=== PATIENT | female | born 1955 | race Caucasian/White ===

== ENCOUNTER 2020-10-31 05:45 | Inpatient (IN) | payer MEDICARE, OTHER ==
[~2020-10-31] VITALS: Ht 154.9 cm; Wt 144.7 kg
[2020-10-31] VITALS (12 sets, daily range): BP systolic 145–197; BP diastolic 67–99
[~2020-10-31 05:45] MED LIST: AMLODIPINE BESY10 MG PO; COZAAR 50 MG TA50 M1 PO; CYMBALTA60 MG PO; ESTRADIOL 1 MG T1 M1 PO; FISH OIL 1,001000 M2 PO; FOLIC ACID1 MG PO; HYDROCHLOROTHIA25 M1 PO; IBUPROFEN 600600 M1 PO; KEFLEX500 M1 PO; NEURONTIN 300M300 M2 PO; NEXIUM40 MG PO; NORCO 5-325 TA1 EACH PO; PREDNISONE 20 M20 M1 PO; PRENATAL PO; PROAIR HFA8.5 GM INH; SYNTHROID25 MC1 PO; TESSALON PERLE100 MG PO; XANAX1 MG PO
[2020-10-31 06:51] LABS: ABSOLUTE BASOPHILS 0.1 thou/uL (0.0-0.2); ABSOLUTE EOSINOPHILS 0.1 thou/uL (0.0-0.7); ABSOLUTE LYMPHOCYTES 1.3 thou/uL (0.8-5.3); ABSOLUTE MONOCYTES 0.7 thou/uL (0.0-1.2); ABSOLUTE NEUTROPHILS 8.4 thou/uL (1.6-8.1); BASOPHILS 0.5 %; EOSINOPHILS 0.7 %; HEMATOCRIT 35.9 % (37.0-47.0); LYMPHOCYTES 12.2 %; MCH 32.7 pg (26.0-34.0); MCHC 33.5 g/dL (28.0-37.0); MCV 97.5 fL (80.0-100.0); MPV 7.3 fl. (7.2-11.1); NUCLEATED RBCS 0 /100WBC; PLATELET COUNT* 261 thou/uL (150-400); POLYS 79.6 %; RBC 3.68 mil/uL (4.20-5.00); RDW-CV 15.4 % (10.5-14.5); WBC 10.5 thou/uL (4.0-11.0)
[2020-10-31 06:57] LABS: CALCIUM 8.4 mg/dL (8.5-10.1); CREATININE 1.1 mg/dL (0.6-1.3); POTASSIUM 3.7 mmol/L (3.5-5.1)
[2020-10-31 07:01] LABS: ALBUMIN 3.5 g/dL (3.4-5.0); TOTAL BILIRUBIN 0.5 mg/dL (<0.1-1.0)
[2020-10-31 07:02] LABS: INR 0.9; PROTIME 9.8 Seconds (9.20-11.50)
[2020-10-31 07:20] LABS: URINE BILIRUBIN NEGATIVE (Negative); URINE BLOOD 1+ (Negative); URINE CLARITY CLEAR; URINE COLOR YELLOW; URINE GLUCOSE-RANDOM NEGATIVE (Negative); URINE KETONES NEGATIVE (Negative); URINE LEUKOCYTES-REFLEX NEGATIVE (Negative); URINE NITRITE-REFLEX NEGATIVE (Negative); URINE PROTEIN 2+ (Negative); URINE UROBILINOGEN 0.2 E.U./dl (0.2-1.0)
[2020-10-31 07:47] LABS: BACTERIA-REFLEX None Seen /HPF (None Seen); CASTS None Seen /LPF (None Seen); CRYSTALS None Seen /LPF (None Seen); SQUAMOUS 0-3 Few /LPF (0-3); URINE RBC 0-2 Rare /HPF (0-2); URINE WBC-REFLEX None Seen /HPF (0-5)
[2020-10-31 10:29] LABS: BE -2.5 mmol/L (-2 to +3)
[2020-10-31 10:32] LABS: PCO2 59.9 mmHg (35.0-45.0)
--- NOTE | 2020-10-31 10:32 | EKG ---
[place] [address] ELECTROCARDIOGRAM REPORT Name: SHELLY GONSALEZ Room: [place] [address] ADM IN .R.#: [id number] Admission: 10/31/20 Attend Phys: Endy Cox Discharge: Date of : 57 Date of Service: 10/31/20 0617 Report #: [id number] THIS REPORT FOR: //name// [facility] ED Test Date: 2020-10-31 Test Time: 06:17:21 Pat Name: SHELLY GONSALEZ Department: Room: [facility] Gender: F Client Care Coordinator: [facility] : 1955 Requested By: Rosalba Funes Order Number: [id number] MD: Ludin Bucio Measurements Intervals [place] Rate: 111 P: 79 [place]: 163 QRS: 70 QRSD: 103 T: 23 QT: 352 QTc: 479 Interpretive Statements Sinus tachycardia poor r wave progression Borderline prolonged QT interval Baseline wander in lead(s) V6 Compared to ECG 07/07/2017 12:45:24 Sinus rhythm no longer present Electronically Signed On 10-31-2020 10:32:40 CDT by Ludin Bucio [email or web address] <ELECTRONICALLY SIGNED> By: Ludin Bucio MD, FACC 10/31/20 1032 6 6 Ludin Bucio MD, [facility] /EPI
[2020-10-31 10:33] LABS: PO2 59.2 mmHg (75.0-100.0)
[2020-10-31 15:43] LABS: BE 0.1 mmol/L (-2 to +3); PCO2 41.2 mmHg (35.0-45.0)
[2020-10-31 15:45] LABS: PO2 55.9 mmHg (75.0-100.0)
[2020-10-31 22:09] LABS: INFLUENZA A ANTIGEN Negative (Negative); INFLUENZA B ANTIGEN Negative (Negative)
[2020-11-01] VITALS (18 sets, daily range): BP systolic 120–176; BP diastolic 52–79
[2020-11-01 03:48] LABS: HEMATOCRIT 30.1 % (37.0-47.0); HEMOGLOBIN 10.1 gm/dL (12.0-15.0); MCH 32.9 pg (26.0-34.0); MCHC 33.6 g/dL (28.0-37.0); MCV 97.9 fL (80.0-100.0); MPV 7.6 fl. (7.2-11.1); NUCLEATED RBCS 0 /100WBC; PLATELET COUNT* 205 thou/uL (150-400); RBC 3.08 mil/uL (4.20-5.00); RDW-CV 15.2 % (10.5-14.5); WBC 10.5 thou/uL (4.0-11.0)
[2020-11-01 03:59] LABS: CALCIUM 8.8 mg/dL (8.5-10.1); CREATININE 1.4 mg/dL (0.6-1.3); POTASSIUM 3.7 mmol/L (3.5-5.1)
[2020-11-01 06:50] LABS: ABSOLUTE LYMPHOCYTES 0.3 thou/uL (0.8-5.3); ABSOLUTE MONOCYTES 0.1 thou/uL (0.0-1.2); ABSOLUTE NEUTROPHILS 10.1 thou/uL (1.6-8.1); PLATELET ESTIMATE ADEQUATE
[2020-11-01 06:51] LABS: ANISOCYTOSIS 1+; POIKILOCYTOSIS 1+
--- NOTE | 2020-11-01 11:18 | CON ---
[address] [address] CONSULTATION Name: SHELYL GONSALEZ Room: [address] IN .R.#: [id number] Admission: 10/31/20 Attend Phys: Endy Novak, Discharge: Date of : 57 Report #: [id number] THIS REPORT FOR: cc: Salty Lockwood MD, Bruce D. MD ~ Ludin Bucio MD [facility] DATE OF SERVICE: 11/01/2020 CARDIOLOGY CONSULTATION HISTORY OF PRESENT ILLNESS: The patient is a 64-year-old single white female, who I was asked to see in the hospital today because of high blood pressure. The patient states she has been told that she has had a heart murmur in the past. Apparently, she had a stress test years ago. She has a history of COPD and does use inhalers. She is not very active at this time. Recently, she has had increasing shortness of breath, cough and some swelling of her feet. She notes occasional episodes when her heart rate will increase, but she has had no syncope. She denied any fever or bleeding. She finally came to the Emergency Room yesterday and was admitted to a monitored bed. However, shortness of breath worsened and she was transferred to the ICU and put on BiPAP. Her blood pressure was noted to be elevated and I was asked to see her for further evaluation and treatment. PAST MEDICAL HISTORY: She has had tonsillectomy, appendectomy, hysterectomy, knee surgery, cataract extraction, hypertension, and history of depression. CURRENT MEDICATIONS: Consists of the following list: She is on an inhaler, Xanax for anxiety, amlodipine, Cymbalta for depression, Nexium, estradiol, hydrochlorothiazide, hydrocodone for chronic pain, Synthroid, losartan, prednisone. ALLERGIES: SHE HAD PREVIOUS INTOLERANCE TO HIGH BLOOD PRESSURE MEDICATIONS. FAMILY HISTORY: Her father had heart disease. SOCIAL HISTORY: She is , lives by herself in [place]. She is on disability. 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 Smokes a pack of cigarettes a day. She drinks a 12-pack of beer a day. No illicit drug use. REVIEW OF SYSTEMS: No history of stroke. She has COPD. No history of liver disease, kidney disease, or cancer. She has a history of depression, saw a psychiatrist in the past. She denies a history of seizure, withdrawal symptoms, passing out from drinking. She has [place] [address] CONSULTATION Name: SHELLY GONSALEZ Room: [address]#: [id number] Admission: 10/31/20 Attend Phys: Endy Novak, Discharge: Date of : 57 Report #: [id number] PHYSICAL EXAMINATION: VITAL SIGNS: Currently, blood pressure is 140/60, pulse 70. She is afebrile. HEENT: She was anicteric. Conjunctivae pink. Mucous membranes moist. NECK: Veins nondistended. No carotid bruits. CHEST: Revealed distant breath sounds. HEART: Regular rate and rhythm, grade 2 systolic ejection murmur. ABDOMEN: Soft. EXTREMITIES: Had no edema. Dorsalis pedis pulse 3+ bilaterally. SKIN: Cool and dry. NEUROLOGIC: Nonfocal. PSYCHIATRIC: Mood is appropriate. SKIN: Warm and dry. ECG on admission showed a sinus rhythm. No significant ST or T-wave change. Her workup: She had a portable chest x-ray on admission yesterday that showed cardiomegaly, an infiltrate, small effusion. She had lab work that included sodium 130, creatinine 1.4. Her liver function studies were normal. Troponin was borderline elevated at 0.17. BNP 11,595. TSH 1.9. White blood cell count 3.0, hemoglobin was 10.1. Her COVID antigen stat test was negative. Urinalysis: Plus protein, plus blood, negative leukocytes. IMPRESSION AND RECOMMENDATIONS: 1. Chronic obstructive pulmonary disease. 2. High blood pressure. The patient has been on ARB, calcium-janeen, diuretic. 3. Borderline troponin. No evidence of acute myocardial infarction. Recommend echocardiogram. 4. Tobacco abuse. 5. Alcohol abuse. I would be concerned about withdrawal symptoms. 6. History of depression. 7. Elevated blood glucose. I would rule out diabetes. 8. Anemia. No history of bleeding. <ELECTRONICALLY SIGNED> By: Ludin Bucio MD, [facility] 11/01/20 1118 0800 [id number] Bucio MD, FAC /nt
[2020-11-01 13:12] LABS: HEMATOCRIT 29.4 % (37.0-47.0); HEMOGLOBIN 9.7 gm/dL (12.0-15.0); MCH 32.4 pg (26.0-34.0); MPV 7.8 fl. (7.2-11.1); NUCLEATED RBCS 0 /100WBC; PLATELET COUNT* 209 thou/uL (150-400); RDW-CV 15.4 % (10.5-14.5); WBC 14.8 thou/uL (4.0-11.0)
[2020-11-01 13:16] LABS: INR 0.9; PROTIME 9.6 Seconds (9.20-11.50)
[2020-11-01 14:29] LABS: ABSOLUTE LYMPHOCYTES 0.6 thou/uL (0.8-5.3); ABSOLUTE MONOCYTES 0.3 thou/uL (0.0-1.2); ABSOLUTE NEUTROPHILS 13.9 thou/uL (1.6-8.1)
[2020-11-01 14:30] LABS: ANISOCYTOSIS 1+; PLATELET ESTIMATE ADEQUATE; POIKILOCYTOSIS 1+
[2020-11-01 18:17] LABS: AMP/METHAMP Negative (Negative); BARBITURATES Negative (Negative); BENZODIAZEPINES POSITIVE (Negative); COCAINE Negative (Negative); METHADONE Negative (Negative); OPIATES Negative (Negative); PCP Negative (Negative); THC Negative (Negative)
[2020-11-02] VITALS: BP 156/64
[2020-11-02 04:00] VITALS: BP 122/51
[2020-11-02 05:05] LABS: HEMATOCRIT 31.1 % (37.0-47.0); HEMOGLOBIN 10.2 gm/dL (12.0-15.0); MCH 32.4 pg (26.0-34.0); MCHC 32.9 g/dL (28.0-37.0); MCV 98.5 fL (80.0-100.0); RBC 3.15 mil/uL (4.20-5.00); RDW-CV 15.6 % (10.5-14.5); WBC 12.1 thou/uL (4.0-11.0)
[2020-11-02 05:26] LABS: ANION GAP 11 mmol/L (7-16); BUN 36 mg/dL (7-18); CHLORIDE 98 mmol/L (98-107); CHOLESTEROL 195 mg/dL (<200); CO2 26 mmol/L (21-32); GLUCOSE 143 mg/dL (70-99); HDL CHOLESTEROL 124 mg/dL (>40); LDL CHOLESTEROL 61 mg/dL (<100); MAGNESIUM 2.5 mg/dL (1.8-2.4); POTASSIUM 3.7 mmol/L (3.5-5.1); SODIUM 135 mmol/L (136-145); TC:HDL 1.6 Ratio (Not establshd); TRIGLYCERIDE 54 mg/dL (<150); VLDL 11 mg/dL (<40)
[2020-11-02 05:28] LABS: SERUM ASSESSMENT CLEAR
[2020-11-02 08:00] VITALS: BP 177/78
[2020-11-02 12:18] VITALS: BP 156/80
--- NOTE | 2020-11-02 14:04 | 2DMMODE ---
[place] [address] 2 D/M-MODE ECHOCARDIOGRAM Name: SHELLY GONSALEZ Room: [facility] ADM IN .R.#: [id number] Admission: 10/31/20 Attend Phys: Endy Cox Discharge: Date of : 57 Date of Service: 11/02/20 1403 Report #: [id number] THIS REPORT FOR: cc: Salty Lockwood MD, Bruce D. MD Holkins,Chuy Brady MD [facility] ~ APPROVED REPORT Study performed: 11/02/2020 11:39:56 EXAM: Comprehensive 2D, Doppler, and color-flow Echocardiogram Patient Location: In-Patient Room #: 227 Status: routine BSA: 1.62 HR: 85 bpm BP: 122/51 mmHg Rhythm: NSR Other Information Study Quality: Good Indications Dyspnea 2D Dimensions IVSd: 11.18 (7-11mm) LVOT Diam: 19.46 (18-24mm) LVDd: 47.74 mm PWd: 8.61 (7-11mm) Ascending Ao: 32.90 (22-36mm) LVDs: 29.89 (25-40mm) Aortic Root: 28.04 mm Volumes Left Atrial Volume (Systole) LA ESV Index: 47.70 mL/m2 Aortic Valve AoV Peak Gallo.: 2.45 m/s AO Peak Gr.: 24.02 mmHg LVOT Max P.01 mmHg AO Mean Gr.: 11.79 mmHg LVOT Mean P.76 mmHg LVOT Max V: 1.66 m/s AO V2 VTI: 43.92 cm LVOT Mean V: 0.98 m/s ROXI (VTI): 2.17 cm2 LVOT V1 VTI: 31.98 cm AI [place]: 6.09 m/s2 [place] [address] 2 D/M-MODE ECHOCARDIOGRAM Name: SHELLY GONSALEZ Room: [address] IN .R.#: [id number] Admission: 10/31/20 Attend Phys: Endy Cox Discharge: Date of : 57 Date of Service: 11/02/20 1403 Report #: [id number] AI PHT: 242.56 ms Mitral Valve E/A Ratio: 1.48 MV Decel. Time: 158.33 ms MV E Max Gallo.: 1.60 m/s MV PHT: 45.91 ms MVA (PHT): 4.79 cm2 TDI E/Lateral E': 17.78 E/Medial E': 20.00 Medial E' Gallo.: 0.08 m/s Lateral E' Gallo.: 0.09 m/s Pulmonary Valve PV Peak Gallo.: 1.09 m/s PV Peak Gr.: 4.76 mmHg Tricuspid Valve RAP Estimate: 5.00 mmHg TR Peak Gr.: 31.00 mmHg RVSP: 36.00 mmHg PA Pressure: 36.00 mmHg Left Ventricle The left ventricle is normal size. There is normal LV segmental wall motion. Borderline concentric left ventricular hypertrophy. Left ventricular systolic function is normal. The left ventricular ejection fraction is within the normal range. LVEF is 55%. Grade IV - fixed restrictive diastolic dysfunction. Right Ventricle The right ventricle is normal size. The right ventricular systolic function is normal. Atria Left atrium is moderately dilated. The right atrium size is normal. Aortic Valve Mild aortic valve sclerosis. Moderate aortic regurgitation. No hemodynamically significant valvular aortic stenosis. Mitral Valve The mitral valve is normal in structure. Moderate mitral regurgitation. No evidence of mitral valve stenosis[place] [address] 2 D/M-MODE ECHOCARDIOGRAM Name: SHELLY GONSALEZ Room: [address]#: [id number] Admission: 10/31/20 Attend Phys: Endy Cox Discharge: Date of : 57 Date of Service: 11/02/20 1403 Report #: [id number] The tricuspid valve is normal in structure. Mild tricuspid regurgitation. Mild pulmonary hypertension. Pulmonic Valve The pulmonary valve is normal in structure. There is no pulmonic valvular regurgitation. Great Vessels The aortic root is normal in size. IVC is normal in size and collapses >50% with inspiration. Pericardium There is no pericardial effusion. <Conclusion> The left ventricle is normal size. Borderline concentric left ventricular hypertrophy. Left ventricular systolic function is normal. The left ventricular ejection fraction is within the normal range. LVEF is 55%. The right ventricle is normal size. Left atrium is moderately dilated. The right atrium size is normal. Mild aortic valve sclerosis. Moderate aortic regurgitation. No hemodynamically significant valvular aortic stenosis. The mitral valve is normal in structure. Moderate mitral regurgitation. The tricuspid valve is normal in structure. Mild tricuspid regurgitation. Mild pulmonary hypertension. IVC is normal in size and collapses >50% with inspiration. There is no pericardial effusion. There is normal LV segmental wall motion. <ELECTRONICALLY SIGNED> By: Chuy Beauchamp MD, FACC 11/02/20 1403 1403 140 Chuy Beauchamp MD, FACC /INF
[2020-11-02 15:56] VITALS: BP 161/66
[2020-11-03 08:11] VITALS: BP 168/70
[2020-11-03] MEDS ORDERED: TESSALON PERLE100 MG PO (09:13)
[2020-11-03] MEDS ORDERED: KEFLEX500 M1 PO (09:13)
[2020-11-03] MEDS ORDERED: PREDNISONE 10 M10 MG PO (09:13)
[2020-11-03 09:38] LABS: CALCIUM 9.2 mg/dL (8.5-10.1); POTASSIUM 3.5 mmol/L (3.5-5.1)
[2020-11-03 11:07] LABS: URINE PROTEIN (MG/DL) 116.5 mg/dL (Not Estab.)
[2020-11-03 11:45] VITALS: BP 147/67
[2020-11-03 12:34] VITALS: BP 147/67
[2020-11-03 12:56] VITALS: BP 147/67
[2020-11-03 13:55] VITALS: BP 147/67
== END 2020-11-03 14:00 | disposition home health service (06) | DRG 177 ==
LOC: M.ERS 05:45 → M.ICU 08:29 → M.TBA-ER 08:29 → M.2W 08:29 → M.ICU 11:08 → M.2W 11-01 18:45
PROVIDERS: Internal Medicine Cardiovascular Disease; Internal Medicine Pulmonary Disease; Personal Emergency Response Attendant; Registered Nurse; ADMIT Family Medicine; ATTEND Family Medicine
PROC: 5A0945A Assistance with Respiratory Ventilation, 24-96 Consecutive Hours, High Flow/Velocity Cannula (ICD-10-PCS; principal; 2020-10-31)
DX: J15.6 Pneumonia due to other Gram-negative bacteria (principal); J96.21 Acute and chronic respiratory failure with hypoxia; J96.22 Acute and chronic respiratory failure with hypercapnia; N17.0 Acute kidney failure with tubular necrosis; I21.A1 Myocardial infarction type 2; J44.1 Chronic obstructive pulmonary disease with (acute) exacerbation; J44.0 Chronic obstructive pulmonary disease with (acute) lower respiratory infection; E87.1 Hypo-osmolality and hyponatremia; I10 Essential (primary) hypertension; F41.9 Anxiety disorder, unspecified; J15.9 Unspecified bacterial pneumonia; E03.9 Hypothyroidism, unspecified; K21.9 Gastro-esophageal reflux disease without esophagitis; E87.6 Hypokalemia; F32.9 Major depressive disorder, single episode, unspecified; F10.10 Alcohol abuse, uncomplicated; Y90.9 Presence of alcohol in blood, level not specified; F17.210 Nicotine dependence, cigarettes, uncomplicated; G25.81 Restless legs syndrome; D64.9 Anemia, unspecified; I08.0 Rheumatic disorders of both mitral and aortic valves; Z20.822 Contact with and (suspected) exposure to COVID-19; Z79.899 Other long term (current) drug therapy; Z88.8 Allergy status to other drugs, medicaments and biological substances; Z90.49 Acquired absence of other specified parts of digestive tract; Z90.710 Acquired absence of both cervix and uterus; Z98.49 Cataract extraction status, unspecified eye

== ENCOUNTER 2021-01-01 14:39 | Inpatient (IN) | payer MEDICARE, OTHER ==
[~2021-01-01] VITALS: Ht 154.9 cm; Wt 66.1 kg
--- NOTE | ~2021-01-01 | PROC ---
[address] [address] PROCEDURE REPORT Name: SHELLY GONSALEZ Room: [address] IN .R.#: [id number] Admission: 01/01/21 Attend Phys: Johnnie Ceballos Discharge: 01/04/21 Date of : 57 Report #: [id number] THIS REPORT FOR: cc: Salty Lockwood MD, Bruce D. MD [facility],Medical Records Staff ~ For GI report, please see the Provation report in Perceptive 7 content. By: 1437Medical Records Staff [facility] /BECKY
--- NOTE | ~2021-01-01 | PROC ---
[address] [address] PROCEDURE REPORT Name: SHELLY GONSALEZ Room: [address] IN .R.#: [id number] Admission: 01/01/21 Attend Phys: Johnnie Ceballos Discharge: 01/04/21 Date of : 57 Report #: [id number] THIS REPORT FOR: cc: Salty Lockwood MD, Bruce D. MD [facility],Medical Records Staff ~ For GI report, please see the Provation report in Perceptive 7 content. By: 1439Medical Records Staff [facility] /BECKY
[~2021-01-01 14:39] MED LIST changes: +PREDNISONE 10 M10 MG PO
[2021-01-01 14:53] VITALS: BP 186/85
[2021-01-01] MEDS ORDERED: SUPER THERAVIT1 EACH PO (15:02)
[2021-01-01 15:25] LABS: ABSOLUTE BASOPHILS 0.1 thou/uL (0.0-0.2); ABSOLUTE EOSINOPHILS 0.1 thou/uL (0.0-0.7); ABSOLUTE MONOCYTES 0.6 thou/uL (0.0-1.2); BASOPHILS 0.9 %; EOSINOPHILS 1.6 %; LYMPHOCYTES 22.5 %; MCH 31.7 pg (26.0-34.0); MCHC 33.5 g/dL (28.0-37.0); MCV 94.5 fL (80.0-100.0); MONOCYTES 6.7 %; MPV 6.9 fl. (7.2-11.1); NUCLEATED RBCS 0 /100WBC; PLATELET COUNT* 373 thou/uL (150-400); POLYS 68.3 %; RBC 2.03 mil/uL (4.20-5.00); RDW-CV 15.9 % (10.5-14.5); WBC 8.8 thou/uL (4.0-11.0)
[2021-01-01 15:28] LABS: HEMATOCRIT 19.2 % (37.0-47.0); HEMOGLOBIN 6.4 gm/dL (12.0-15.0)
[2021-01-01 15:33] LABS: CALCIUM 8.6 mg/dL (8.5-10.1); CREATININE 1.3 mg/dL (0.6-1.3); POTASSIUM 4.6 mmol/L (3.5-5.1)
[2021-01-01 15:35] LABS: APTT 23.2 Seconds (25.0-31.3); INR 0.9; PROTIME 10.1 Seconds (9.20-11.50)
[2021-01-01 15:43] LABS: ALBUMIN 3.4 g/dL (3.4-5.0); MAGNESIUM 2.5 mg/dL (1.8-2.4); TOTAL BILIRUBIN 0.3 mg/dL (<0.1-1.0); TOTAL PROTEIN 6.8 g/dL (6.4-8.2)
--- NOTE | 2021-01-01 16:03 | EKG ---
[place] [address] ELECTROCARDIOGRAM REPORT Name: SHELLY GONSALEZ Susanne Room: [facility]#: [id number] Admission: 01/01/21 Attend Phys: Discharge: Date of : 57 Date of Service: 01/01/21 1451 Report #: [id number] THIS REPORT FOR: //name// [facility] ED Test Date: 2021-01-01 Test Time: 14:51:43 Pat Name: SHELLY GONSALEZ Department: Room: Gender: Yarn Man: CD : 1955 Requested By: Don Camargo Order Number: [id number] MD: Ludin Bucio Measurements Intervals [place] Rate: 102 P: 68 [place]: 162 QRS: 59 QRSD: 99 T: 42 QT: 349 QTc: 455 Interpretive Statements Sinus tachycardia artifact noted Compared to ECG 10/31/2020 06:17:21 Poor R-wave progression no longer present Electronically Signed On 01-01-2021 16:03:24 CDT by Ludin Bucio [email or web address] <ELECTRONICALLY SIGNED> By: Ludin Bucio MD, [facility] 01/01/21 1603 1451 1451 Ludin Bucio MD, [facility] /EPI
[2021-01-01 18:32] VITALS: BP 155/58
[2021-01-01 20:00] VITALS: BP 143/63
[2021-01-02] VITALS (8 sets, daily range): BP systolic 132–163; BP diastolic 56–87
[2021-01-02 04:20] LABS: MCH 30.5 pg (26.0-34.0); MCHC 33.5 g/dL (28.0-37.0); MCV 90.9 fL (80.0-100.0); NUCLEATED RBCS 0 /100WBC; PLATELET COUNT* 315 thou/uL (150-400); RBC 2.17 mil/uL (4.20-5.00); RDW-CV 17.7 % (10.5-14.5); WBC 7.9 thou/uL (4.0-11.0)
[2021-01-02 04:27] LABS: HEMATOCRIT 19.7 % (37.0-47.0); HEMOGLOBIN 6.6 gm/dL (12.0-15.0)
[2021-01-02 04:52] LABS: CALCIUM 8.6 mg/dL (8.5-10.1); CREATININE 1.4 mg/dL (0.6-1.3); MAGNESIUM 2.5 mg/dL (1.8-2.4); PHOSPHORUS* 3.6 mg/dL (2.5-4.9); POTASSIUM 4.8 mmol/L (3.5-5.1); TOTAL BILIRUBIN 0.7 mg/dL (<0.1-1.0); TOTAL PROTEIN 6.4 g/dL (6.4-8.2)
[2021-01-02 06:57] LABS: ABSOLUTE LYMPHOCYTES 0.7 thou/uL (0.8-5.3); ABSOLUTE MONOCYTES 0.1 thou/uL (0.0-1.2); ABSOLUTE NEUTROPHILS 7.1 thou/uL (1.6-8.1)
[2021-01-02 07:00] LABS: ANISOCYTOSIS 1+; PLATELET ESTIMATE ADEQUATE
[2021-01-02 18:55] LABS: HEMATOCRIT 25.1 % (37.0-47.0); HEMOGLOBIN 8.4 gm/dL (12.0-15.0)
[2021-01-03 00:22] VITALS: BP 154/69
[2021-01-03 07:07] LABS: ABSOLUTE MONOCYTES 0.3 thou/uL (0.0-1.2); ABSOLUTE NEUTROPHILS 14.8 thou/uL (1.6-8.1); BASOPHILS 0.1 %; HEMATOCRIT 25.1 % (37.0-47.0); HEMOGLOBIN 8.3 gm/dL (12.0-15.0); LYMPHOCYTES 5.9 %; MCH 29.7 pg (26.0-34.0); MONOCYTES 2.1 %; MPV 7.6 fl. (7.2-11.1); NUCLEATED RBCS 0 /100WBC; PLATELET COUNT* 348 thou/uL (150-400); POLYS 91.9 %; RBC 2.78 mil/uL (4.20-5.00); RDW-CV 17.7 % (10.5-14.5); WBC 16.1 thou/uL (4.0-11.0)
[2021-01-03 07:09] LABS: ALBUMIN 3.5 g/dL (3.4-5.0); CALCIUM 8.7 mg/dL (8.5-10.1); CREATININE 1.6 mg/dL (0.6-1.3); POTASSIUM 3.8 mmol/L (3.5-5.1); TOTAL BILIRUBIN 0.3 mg/dL (<0.1-1.0); TOTAL PROTEIN 7.1 g/dL (6.4-8.2)
[2021-01-03 08:00] VITALS: BP 169/70
[2021-01-03 12:51] VITALS: BP 150/66
[2021-01-03 16:00] VITALS: BP 104/76; BP 161/80
[2021-01-03 20:00] VITALS: BP 176/76
[2021-01-03 23:40] VITALS: BP 184/81
[2021-01-04 04:12] VITALS: BP 163/71
[2021-01-04 05:48] LABS: HEMOGLOBIN 7.6 gm/dL (12.0-15.0); MCH 29.9 pg (26.0-34.0); MCHC 32.9 g/dL (28.0-37.0); MCV 90.7 fL (80.0-100.0); MPV 6.8 fl. (7.2-11.1); RBC 2.53 mil/uL (4.20-5.00); RDW-CV 17.8 % (10.5-14.5); WBC 13.1 thou/uL (4.0-11.0)
[2021-01-04 07:39] LABS: ALBUMIN 3.2 g/dL (3.4-5.0); CREATININE 1.5 mg/dL (0.6-1.3); TOTAL BILIRUBIN 0.2 mg/dL (<0.1-1.0); TOTAL PROTEIN 6.1 g/dL (6.4-8.2)
[2021-01-04 08:00] VITALS: BP 173/81
[2021-01-04 12:00] VITALS: BP 162/65
[2021-01-04 19:28] VITALS: BP 162/65
--- NOTE | 2021-01-06 19:07 | PATH ---
[address] [address] PATHOLOGY RPT PROCEDURE Name: GINAMaxKATINALLELY Max Room: [address] IN .R.#: [id number] Admission: 01/01/21 Date of : 57 Discharge: 01/04/21 Report #: [id number] Path Case #: [id number] [facility] Accession Number: [id number] . 01 Material submitted: . PART A: stomach - BIOPSY ANTRUM PART B: esophagus - DISTAL ESOPHAGUS BIOPSY. Modifiers: distal . 01 Clinical history: . EGD IN OR ANEMIA/MELENA RESPIRATORY FAILURE,COPD,EXAC,BRONCHITIS,GI BLEED ALLERGIC TO HIGH BLOOD PRESSURE MED FOR B- R/O MARTÍNEZ'S . 02 Diagnosis: A. Stomach "antrum", biopsy: - Gastric antral and oxyntic mucosa with features of reactive gastro- johnna and focal intestinal metaplasia, arising in a background of mild chronic inflammation. - Negative for dysplasia and malignancy. - Negative for Helicobacter pylori. . B. Esophagus "distal", biopsy: - Esophageal squamous and gastric cardia mucosa with features of reflux esophagitis. - Negative for intestinal metaplasia, dysplasia, and malignancy. (MLK:annalee; 01/06/2021) QMS 01/06/2021 1813 Local . 02 Electronically signed: . Shawnee Espino MD, Pathologist NPI- [id number] . 01 Gross description: . A. Received in formalin labeled "Nallely Gonsalez, biopsy antrum" is a fragment of chaparro-brown soft tissue measuring 0.5 x 0.3 x 0.1 cm. The specimen is submitted entirely in A1. . B. Received in formalin labeled "ronmax Nallely, distal esophagus biopsy rule out Martínez's" are 2 fragments of chaparro-brown soft tissue measuring in aggregate 0.5 x 0.3 x 0.1 cm. The specimen is submitted entirely in B1. [place] [place]05[place] SY/[facility] 01/05/2021 1626 Local . 02 Microscopic: . Immunohistochemical stain results (properly controlled): - Helicobacter pyloris (A1) - [place] [address] PATHOLOGY RPT PROCEDURE Name: NALLELY GONSALEZ S Room: [address] IN [facility].#: [id number] Admission: 01/01/21 Date of : 57 Discharge: 01/04/21 Report #: [id number] Path Case #: [id number] (MLK:annalee; 01/06/2021) . 02 Pathologist provided ICD-10: K31.9, K29.50, D64.9, K92.1 . 02 CPT . 713744, 020047, A47043 Specimen Comment: A courtesy copy of this report has been sent to [phone], [phone] Specimen Comment: [phone], Specimen Comment: Report sent to ,DR GEORGE / DR ERAZO Performed at: [address], [place] [id number] MD Adonay Fleming MD Phone: [phone] Performed at: 02 [facility] [address] Baeza, [place], [place] [id number] MD Mike Flores MD Phone: [phone]
== END 2021-01-04 20:49 | disposition home or self-care (01) | DRG 377 ==
LOC: M.ERS 14:39 → M.TBA-ER 16:04 → M.2W 16:04
PROVIDERS: Family Medicine; Internal Medicine Gastroenterology; Registered Nurse; ADMIT Internal Medicine; ATTEND Internal Medicine
PROC: 30233N1 Transfusion of Nonautologous Red Blood Cells into Peripheral Vein, Percutaneous Approach (ICD-10-PCS; 2021-01-01)
PROC: 0DB68ZX Excision of Stomach, Via Natural or Artificial Opening Endoscopic, Diagnostic (ICD-10-PCS; 2021-01-03)
PROC: 0DB58ZX Excision of Esophagus, Via Natural or Artificial Opening Endoscopic, Diagnostic (ICD-10-PCS; 2021-01-03)
PROC: 0DBP8ZZ Excision of Rectum, Via Natural or Artificial Opening Endoscopic (ICD-10-PCS; principal; 2021-01-04)
DX: K57.31 Diverticulosis of large intestine without perforation or abscess with bleeding (principal); J96.21 Acute and chronic respiratory failure with hypoxia; I50.33 Acute on chronic diastolic (congestive) heart failure; D62 Acute posthemorrhagic anemia; J44.1 Chronic obstructive pulmonary disease with (acute) exacerbation; E87.1 Hypo-osmolality and hyponatremia; K21.9 Gastro-esophageal reflux disease without esophagitis; K64.9 Unspecified hemorrhoids; K44.9 Diaphragmatic hernia without obstruction or gangrene; K22.70 Barrett's esophagus without dysplasia; I11.0 Hypertensive heart disease with heart failure; D12.8 Benign neoplasm of rectum; K22.8 Other specified diseases of esophagus; K31.89 Other diseases of stomach and duodenum; F17.210 Nicotine dependence, cigarettes, uncomplicated; F41.9 Anxiety disorder, unspecified; G25.81 Restless legs syndrome; E03.9 Hypothyroidism, unspecified; Z20.822 Contact with and (suspected) exposure to COVID-19; Z79.899 Other long term (current) drug therapy; Z90.49 Acquired absence of other specified parts of digestive tract; Z90.710 Acquired absence of both cervix and uterus; Z88.8 Allergy status to other drugs, medicaments and biological substances